=== PATIENT | male | born 1980 | race Caucasian/White ===

== ENCOUNTER 2016-03-07 05:59 | Day surgery (SDC) | payer OTHER ==
[~2016-03-07] VITALS: Ht 188 cm; Wt 91.8 kg
[2016-03-07] VITALS (10 sets, daily range): BP systolic 118–152; BP diastolic 43–93; PULSE 40–64; RESP 7–20; O2SAT 97–100
[~2016-03-07 05:59] MED LIST: OXYC-474 PO; TAMS0.4C98 PO
[2016-03-07] MEDS ORDERED: fentaNYL-PF 50 mCg/mL 2 mL Inj ONE (06:00)
[2016-03-07] MEDS ORDERED: Propofol 10,000 mCg/mL 20 mL Inj ONE (06:00)
[2016-03-07] MEDS ORDERED: Dexamethasone 4 mg/mL Inj ONE (06:00)
[2016-03-07] MEDS ORDERED: Ondansetron 2 mg/mL 2 mL Inj ONE (06:00)
[2016-03-07] MEDS ORDERED: CeFAZolin 2 Gm/50 mL D5W IV Premix IV ONE ×2 (06:00)
[2016-03-07] MEDS ORDERED: CeFAZolin 2 Gm/50 mL D5W Duplex Bag IV ONE (06:28)
[2016-03-07] MEDS: Lactated Ringer's 1,000 ML IV SCH ×2 (07:10→07:27)
[2016-03-07] MEDS ORDERED: Iopamidol-300 50 mL Inj IV ONE (07:52)
[2016-03-07] MEDS ORDERED: Lactated Ringer's 500 ML IV PRN (07:56)
[2016-03-07] MEDS ORDERED: Lactated Ringer's 1,000 ML IV SCH (07:56)
--- NOTE | 2016-03-07 07:56 | PCM.HPANE ---
Patient Data Surgeon Admitting Provider: Attending Provider:Mora Su MD Primary Care Physician:Kenneth Other Provider:Danny Bauer Anesthesia Reason for Visit Bilateral Kidney Stones Ht/WT & BMI Height (Feet): 6 Height (Inches): 2.00 Weight (Kilograms): 91.8 Body Mass Index 25.00 Allergies Coded Allergies: hydromorphone (Verified Allergy, Severe, itching, 03/07/16) Uncoded Allergies: KETORALAC (Allergy, Severe, edema, 03/07/16) Past Anesthesia History Anesthesia History: Denies:: Abnormal Airway, Anesthesia Reactions, Difficult Intubation, Fam Anesthesia Reaction Diabetes History Hx Diabetes?: No MRSA MRSA: No Medications Home Meds Incl Beta Kelton: No Discontinued Reported Medications Tamsulosin (Flomax)0.4 Mg Capsule0.8 Mg PO DAILY Ref 0 03/06/16 Oxycodone (Roxicodone)5 Mg Tablet5 Mg PO Q4H PRN For Pain Ref 0 03/06/16 History HEENT History: Denies:: Abnormal Airway Cataracts Difficult Intubation Dysphagia Glaucoma (being monitored for now) Hearing Problem Sinus Problem TMJ Cardiovascular History: Denies:: AICD Abdominal Aortic Aneurism Atrial Fibrillation Chest Pain Congestive Heart Failure Coronary Artery Disease Edema Heart Murmur Hypertension Irregular Heartbeat Pacemaker Peripheral Vascular Hx of Respiratory Problem?: No Respiratory History: Denies:: Asthma COPD Emphysema Oxygen Administration Pneumonia Tuberculosis Use of C-PAP Machine Use of Inhalers / NEBS Hx Neurologic Problems?: No Neurological History: Denies:: Alzheimer's Disease CVA Dementia Dizziness Headaches Multiple Sclerosis Parkinson's Disease Seizures TIA Hx of GI Problems?: No Gastrointestinal History: Denies:: Cirrhosis Gall Bladder Disease Gastroesphageal Reflux Gastrointestinal Bleeding Heartburn Hepatitis Hiatal Hernia Liver Disease Rectal Bleeding Hx of Problems?: Yes Genitourinary History: Positive for:: Kidney Stones (kerri stones current admission problem) Denies:: Urinary Tract Infection Other Pertinent History: past hx of 14 kidney stones, no prior surgeries Male Hx: Denies:: Prostate Problems Skin History: Denies:: History Skin Disorders? Pressure Ulcers Hx Musculoskeletal Problems?: No Musculoskeletal History: Denies:: Back Injury Fibromyalgia Musculoskeletal Trauma Myasthenia Gravis Osteoarthritis Rheumatoid Arthritis Systemic Lupus Hx of Psycho/Social Problems?: No Psycho Social History: Denies:: Anxiety Hx Depression Hx Surgeries?: Yes (vasectomy) Hx Any Other Health Problems?: Yes Other History: Denies:: Cancer Thyroid Disease History Blood Transfusions: Positive for:: Accept Blood Products? Denies:: Blood Transfusions Hx Diabetes: No Hx Alcohol Use: YesAlcoholic Drinks Per Day: one drink weeklyHx Substance Use : NoHave You Smoked inLast 12 mo: No Stop/Bang S-Snoring: Do You Snore Loudly: No T-Tired: feel tired, fatigued: No O-Obsered: Observed not breath: Yes P-Blood Pressure: treated: No B- Body Mass Index > 35 kg/m2: No A- Age over 50: No N- Neck Large Circumference: No G- Gender Male: Yes BALTA Total Score: 2 Risk Assessment Category Category 1A: Patient has history of documented sleep apnea, and HAS NOT received any narcotic, sedative or anesthesia administration during this stay. Category 1B: Patient has history of documented sleep apnea, and HAS received any narcotic , sedative or anesthesia administration during this stay Category 2: Patient has SUSPECTED Obstructive Sleep Apnea, and HAS received any narcotic , sedative or anesthesia administration during this stay. Category 3: Patient has SUSPECTED Obstructive Sleep Apnea and HAS NOT received narcotic, sedative or anesthesia administration during this stay. Category 4: Outpatient in Procedural Areas with known sleep apnea or who screen positive for High Risk via the STOP/BANG questionnaire. Exam Exam Vital Signs Vital Signs Date Time Temp Pulse Resp B/P Pulse Ox O2 Delivery O2 Flow Rate FiO2 03/07/16 07:10 36.1 64 16 127/77 100 Room Air General Appearance: Alert, Oriented X3, Cooperative, No Acute Distress HEENT/AIRWAY: MP 2, Neck Movement (FROM), Mouth Opening (3 FBMO) Lungs: Normal Air Movement Heart: Regular Rate/Rhythm Meds/Labs/Diagnostics Admission Meds Current Medications Lactated Ringer's (Lr) 1,000 ml @ 120 mls/hr Q8H20M IV Last administered on t 07:10; Start 03/07/16 at 05:00; Stop 03/07/16 at 13:19 Plan Impression Patient chart reviewed, patient interviewed and anesthestic plan with risks, benefits, and alternatives discussed, and informed consent obtained. NPO Status: 1730 ASA Physical Status: ASA2 Mod Systemic Disease Anesthetic Plan: GA Bene/Risks/Altern/Consents: Yes HP Complete Prior to Induction: Yes Viktor Lomeli MD Mar 07, 2016 07:26
[2016-03-07] MEDS ORDERED: Phenylephrine 10,000 mCg/mL Inj IVPUSH PRN (08:00)
[2016-03-07] MEDS ORDERED: MetoCLOpramide 5 mg/mL 2 mL Inj IVPUSH PRN (08:00)
[2016-03-07] MEDS ORDERED: Atropine 0.4 mg/mL Inj IVPUSH PRN (08:00)
[2016-03-07] MEDS ORDERED: Ondansetron 2 mg/mL 2 mL Inj IVPUSH PRN (08:00)
[2016-03-07] MEDS ORDERED: hydrALAZINE 20 mg/mL Inj IVPUSH PRN (08:00)
[2016-03-07] MEDS ORDERED: Labetalol 5 mg/mL 4 mL Inj IV PRN (08:00)
[2016-03-07] MEDS ORDERED: EPHEDrine Sulfate 50 mg/mL Inj IVPUSH PRN (08:00)
[2016-03-07] MEDS ORDERED: oxyCODONE-Acetamin 5-325 mg Tablet PO PRN (09:05)
[2016-03-07] MEDS: fentaNYL-PF 50 mCg/mL 2 mL Inj IVPUSH PRN ×2 (09:08→09:17)
--- NOTE | 2016-03-07 09:44 | OP ---
[address] [address] OPERATIVE REPORT PATIENT: SHIRLENE LOPEZ : 1980 MR#: [id number] ADMIT: 03/07/2016 JOB ID: [id number] DATE OF SURGERY: 03/07/2016 PREOPERATIVE DIAGNOSIS(ES): Bilateral kidney stones. POSTOPERATIVE DIAGNOSIS(ES): Bilateral kidney stones. PROCEDURE PERFORMED: 1. Cystoscopy. 2. Bilateral retrograde pyelograms. 3. Right ureteroscopy. 4. Right ureteral stent placement. 5. Left ureteroscopy and laser lithotripsy with stone basketing. 6. Left ureteral stent placement. SURGEON: Mora Su MD. CELLOPHANE TESTER: None. FINDINGS: 1. Bilateral orthotopic ureteral orifices. 2. Somewhat narrow but within normal range caliber proximal ureter just beyond the UPJ on the right. 3. Multiple left kidney stones. ANESTHESIA: General. ESTIMATED BLOOD LOSS: Less than 5 mL. DRAINS: Bilateral 6 x 28 double-J ureteral stent. SPECIMENS: Bilateral kidney stones. COMPLICATIONS: None. CONDITION: Stable. INDICATION FOR PROCEDURE: The patient is a 35-year-old gentleman with bilateral kidney stones. There are multiple stones in each kidney, the largest approximately 5 mm. 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 DESCRIPTION OF PROCEDURE: After informed consent was obtained, the patient was taken to the operating room. A time-out was performed identifying correct patient, surgical site, procedure. General anesthesia was smoothly induced. He was placed in the lithotomy position and all pressure points were identified and appropriately padded. He was given intravenous antibiotics just prior to the start of the procedure. A 22-Mauritian rigid cystoscope was applied to the patient's urethra and advanced into the bladder. The bladder was drained. Both ureteral orifices were seen in orthotopic position and were of normal size and shape. The right ureteral orifice was cannulated with a 5-Mauritian open-ended Pollack catheter. Retrograde pyelogram was performed. There were no abnormalities. Two Sensor tip wires were then advanced into the renal pelvis in succession and placed into the renal pelvis as seen under fluoroscopy. A 12/14 access sheath 28 cm long was then advanced over one of the wires into the distal to mid ureter. Flexible ureteroscopy then commenced. The mid ureter was normal. The proximal ureter was also normal. Upon advancing to the proximal ureter just distal to the UPJ there was a small narrowing there. There were no strictures. It appeared entirely normal. Despite gentle attempts to manipulate the ureteroscope beyond the ureteropelvic junction it was not possible. A Sensor tip wire was then placed through the scope and advanced into the kidney as seen under fluoroscopy. I gently advanced the ureteroscope over the wire but it was not possible to navigate further. The ureteroscope was then brought down to the level of the access sheath under direct vision. Both were brought down in tandem. The mid and distal ureter was normal. The remaining wire was then backloaded into the cystoscope and a 6 x 28 double-J ureteral stent was loaded over it and advanced to the renal pelvis as seen under fluoroscopy. The wire was then removed leaving a nice coil in the bladder seen under direct vision. The left ureteral orifice was then cannulated with a 5-Mauritian open-ended Pollack catheter. Retrograde pyelogram was performed. It appeared entirely normal. Two Sensor tip wires were then loaded in succession into the renal pelvis as seen under fluoroscopy. A 12/14 access sheath 28 cm long was loaded over one of the wires and advanced to the distal and mid ureter. Flexible ureteroscopy then commenced. Entry into the kidney with gained. Every calyx was examined. There were at least seven stones treated with a 273 micron laser FiberWire. The stones were broken up into little pieces, and the tiny stones were taken off the papilla with the laser. A Zero Tip Nitinol basket was then used to basket the stones. Even tiny fragments were removed, considering the patient's occupation. Considerable effort was made to remove every bit of basketable stones. The only debris left was sand from the laser lithotripsy. Ureteroscope was then brought down to the level of the access sheath. Both were brought down in tandem. The ureter appeared entirely normal. A 6 x 28 double-J ureteral stent was loaded over the wire and advanced to the renal pelvis and seen under fluoroscopy. The wire was then removed leaving a nice coil in the patient's bladder as seen under direct vision. The bladder was then drained. Then, 2% viscous lidocaine jelly was applied to the patient's urethra, and the patient was then reversed from general anesthesia. He was taken to the PACU in good and stable condition. NESS
--- NOTE | 2016-03-07 10:20 | PCM.ANEP1 ---
Post Anesthesia Phase 1 PACU Phase 1 Assessment Vital Signs Vital Signs Date Time Temp Pulse Resp B/P Pulse Ox O2 Delivery O2 Flow Rate FiO2 03/07/16 10:06 36.2 42 16 133/44 99 Room Air 03/07/16 09:34 36.3 40 11 149/66 99 Room Air 03/07/16 09:30 48 20 152/76 97 Room Air 03/07/16 09:15 62 20 143/83 99 Room Air 03/07/16 09:10 36.5 55 11 140/93 99 Room Air 03/07/16 09:05 52 17 137/79 99 Room Air 03/07/16 09:00 52 19 126/63 99 Room Air 03/07/16 08:55 46 16 118/54 99 Simple Mask 8 03/07/16 08:50 36.4 48 7 118/43 98 Simple Mask 8 03/07/16 07:10 36.1 64 16 127/77 100 Room Air Anesthetic Administered: GA Level of Alertness: Awake, talking LEDESMA's with Equal Strength: Yes Pain: No Nausea or Vomiting: No Oxygen Delivery: Room Air Lungs: Normal Air Movement Dermatome Level: Full Sensation Viktor Lomeli MD Mar 07, 2016 10:20
--- NOTE | 2016-03-07 15:02 | DRSVH ---
PROCEDURE: X-RAY RETROGRADE UROGRAPHY INDICATIONS: BILATERAL STENT PLACEMENT/STONE REMOVAL TECHNIQUE: 4 intra-operative images acquired by the Urology service. COMPARISON: None. FINDINGS: Intraoperative imaging during retrograde pyelography and stent placement on the left. IMPRESSION: Image documentation left retrograde pyelography and stent placement Dictated by: Sean Chery M.D. on 03/07/2016 at 15:00 Approved by: Sean Chery M.D. on 03/07/2016 at 15:00
--- NOTE | 2016-03-07 15:03 | DRSVH ---
PROCEDURE: X-RAY RETROGRADE UROGRAPHY INDICATIONS: C-ARM ASSISTED RIGHT STENT PLACEMENT TECHNIQUE: 5 intra-operative images acquired by the Urology service. COMPARISON: None. FINDINGS: Intraoperative images obtained during right retrograde pyelography and stent placement. IMPRESSION: Intraoperative documentation right ureteral stent placement Dictated by: Sean Chery M.D. on 03/07/2016 at 15:01 Approved by: Sean Chery M.D. on 03/07/2016 at 15:01
--- NOTE | 2016-03-07 16:45 | PCM.ANEP2 ---
Post Anesthesia Evaluation ASA/CMS Post Anesthesia VS in Patient's Normal Range?: Yes Resp Stable; Airway Patent?: Yes CV Function & Hydration Stable: Yes Mental Status Recovered?: Yes Pain control Satisfactory?: Yes N/V Control Satisfactory?: Yes Viktor Lomeli MD Mar 07, 2016 16:45
[2016-03-10] MEDS ORDERED: TAMS0.4C98 PO (16:02)
[2016-03-10] MEDS ORDERED: OXYC-474 PO (16:02)
[2016-03-15 09:09] LABS: Stone Color Brown (.)
== END 2016-03-07 23:59 | disposition home or self-care (01) ==
LOC: SAS 05:59
PROVIDERS: ATTEND Urology
DX: N20.0 Calculus of kidney (principal)
CPT/HCPCS: 52332; 52356; 74420; 82360; C2617; J0690; J1100; J2405; J7120; Q9967

== ENCOUNTER 2016-03-14 12:06 | Day surgery (SDC) | payer OTHER ==
[2016-03-14] VITALS (8 sets, daily range): BP systolic 130–143; BP diastolic 69–82; PULSE 44–61; RESP 14–19; O2SAT 96–99
[~2016-03-14] VITALS: Ht 188 cm; Wt 89.6 kg
[~2016-03-14 12:06] MED LIST changes: +CeFAZolin 2 Gm/50 mL D5W IV Premix IV ONE
[2016-03-14] MEDS ORDERED: Dexamethasone 4 mg/mL Inj ONE (12:07)
[2016-03-14] MEDS ORDERED: fentaNYL-PF 50 mCg/mL 2 mL Inj ONE (12:07)
[2016-03-14] MEDS ORDERED: Ondansetron 2 mg/mL 2 mL Inj ONE (12:07)
[2016-03-14] MEDS ORDERED: Propofol 10,000 mCg/mL 20 mL Inj ONE (12:07)
[2016-03-14] MEDS: Lactated Ringer's 1,000 ML IV SCH ×2 (12:28→14:12)
[2016-03-14] MEDS ORDERED: CeFAZolin 2 Gm/50 mL D5W Duplex Bag IV ONE (12:50)
--- NOTE | 2016-03-14 13:42 | PCM.HPANE ---
Patient Data Date of Service: Mar 14, 2016 Surgeon Admitting Provider: Attending Provider:Mora Su MD Primary Care Physician:Kenneth Other Provider:Danny Bauer Anesthesia Reason for Visit Right Kidney Stone Ht/WT & BMI Height (Feet): 6 Height (Inches): 2 Weight (Kilograms): 89.6 Body Mass Index 25.00 Allergies Coded Allergies: hydromorphone (Verified Allergy, Severe, facial itching, 03/14/16) ketorolac (Verified Allergy, Unknown, 03/14/16) Past Anesthesia History Anesthesia History: Denies:: Abnormal Airway, Anesthesia Reactions, Difficult Intubation, Fam Anesthesia Reaction Diabetes History Hx Diabetes?: No MRSA MRSA: No Medications Hypertension Medication: No Home Meds Incl Beta Kelton: No Reported Medications Tamsulosin (Flomax)0.4 Mg Capsule0.4 Mg PO DAILY Ref 0 03/10/16 Oxycodone (Roxicodone)5 Mg Tablet5 Mg PO Q4H PRN For Pain Ref 0 03/10/16 Discontinued Reported Medications Tamsulosin (Flomax)0.4 Mg Capsule0.8 Mg PO DAILY Ref 0 03/06/16 Oxycodone (Roxicodone)5 Mg Tablet5 Mg PO Q4H PRN For Pain Ref 0 03/06/16 History History of ENT Problems?: No HEENT History: Denies:: Abnormal Airway Cataracts Difficult Intubation Dysphagia Hearing Problem Sinus Problem TMJ Hx of Heart Problems?: No Cardiovascular History: Denies:: AICD Abdominal Aortic Aneurism Atrial Fibrillation Chest Pain Congestive Heart Failure Edema Heart Murmur Hypertension Irregular Heartbeat Pacemaker Hx of Respiratory Problem?: No Respiratory History: Denies:: Asthma COPD Emphysema Oxygen Administration Pneumonia Tuberculosis Use of C-PAP Machine Hx Neurologic Problems?: No Neurological History: Denies:: Alzheimer's Disease CVA Dementia Dizziness Headaches Multiple Sclerosis Parkinson's Disease Seizures Hx of GI Problems?: No Gastrointestinal History: Denies:: Cirrhosis Gastroesphageal Reflux Gastrointestinal Bleeding Heartburn Hepatitis Hiatal Hernia Rectal Bleeding Hx of Problems?: Yes Genitourinary History: Positive for:: Kidney Stones (right kidney stones current admission problem) Denies:: Urinary Tract Infection Other Pertinent History: multiple stone hx- had bilateral lithotripsy stents done here 03/07/16 Male Hx: Denies:: Prostate Problems Skin History: Denies:: History Skin Disorders? Pressure Ulcers Hx Musculoskeletal Problems?: No Musculoskeletal History: Denies:: Back Injury Musculoskeletal Trauma Systemic Lupus Hx of Psycho/Social Problems?: No Psycho Social History: Denies:: Anxiety Hx Depression Hx Surgeries?: Yes (vasectomy, kerri lithotripsy, stents) Hx Any Other Health Problems?: Yes Other History: Denies:: Cancer Thyroid Disease History Blood Transfusions: Denies:: Blood Transfusions Hx Diabetes: No Hx Alcohol Use: YesHx Substance Use: No Smoking Status: Never Smoker Have You Smoked inLast 12 mo: No Stop/Bang S-Snoring: Do You Snore Loudly: No T-Tired: feel tired, fatigued: No O-Obsered: Observed not breath: Yes P-Blood Pressure: treated: No B- Body Mass Index > 35 kg/m2: No A- Age over 50: No N- Neck Large Circumference: No G- Gender Male: Yes BALTA Total Score: 2 BALTA Risk Assessment: Low Risk, <3 Yes Risk Assessment Category Category 1A: Patient has history of documented sleep apnea, and HAS NOT received any narcotic, sedative or anesthesia administration during this stay. Category 1B: Patient has history of documented sleep apnea, and HAS received any narcotic , sedative or anesthesia administration during this stay Category 2: Patient has SUSPECTED Obstructive Sleep Apnea, and HAS received any narcotic , sedative or anesthesia administration during this stay. Category 3: Patient has SUSPECTED Obstructive Sleep Apnea and HAS NOT received narcotic, sedative or anesthesia administration during this stay. Category 4: Outpatient in Procedural Areas with known sleep apnea or who screen positive for High Risk via the STOP/BANG questionnaire. Exam Exam Vital Signs Vital Signs Date Time Temp Pulse Resp B/P Pulse Ox O2 Delivery O2 Flow Rate FiO2 03/14/16 12:39 36.3 50 16 133/82 99 Room Air General Appearance: Alert, Oriented X3, Cooperative, No Acute Distress HEENT/AIRWAY: MP 2 Lungs: Clear to Auscultation, Normal Air Movement Heart: Exam Unremarkable, Regular Rate/Rhythm, No Murmurs/Rubs/Gallops Meds/Labs/Diagnostics Admission Meds Current Medications Lactated Ringer's (Lr) 1,000 ml @ 120 mls/hr Q8H20M IV Last administered on t 12:28; Start 03/14/16 at 05:00; Stop 03/14/16 at 13:19; Status DC Plan Impression Patient chart reviewed, patient interviewed and anesthestic plan with risks, benefits, and alternatives discussed, and informed consent obtained. NPO Status: 0530 03/14 ASA Physical Status: ASA2 Mod Systemic Disease Anesthetic Plan: GA Bene/Risks/Altern/Consents: Yes HP Complete Prior to Induction: Yes Thiago Frankel MD Mar 14, 2016 13:42
[2016-03-14] MEDS ORDERED: Lactated Ringer's 500 ML IV PRN (14:42)
[2016-03-14] MEDS ORDERED: Lactated Ringer's 1,000 ML IV SCH (14:42)
[2016-03-14] MEDS ORDERED: Phenylephrine 10,000 mCg/mL Inj IVPUSH PRN (14:45)
[2016-03-14] MEDS ORDERED: EPHEDrine Sulfate 50 mg/mL Inj IVPUSH PRN (14:45)
[2016-03-14] MEDS ORDERED: Labetalol 5 mg/mL 4 mL Inj IV PRN (14:45)
[2016-03-14] MEDS ORDERED: hydrALAZINE 20 mg/mL Inj IVPUSH PRN (14:45)
[2016-03-14] MEDS ORDERED: Atropine 0.4 mg/mL Inj IVPUSH PRN (14:45)
[2016-03-14] MEDS ORDERED: fentaNYL-PF 50 mCg/mL 2 mL Inj IVPUSH PRN (14:45)
[2016-03-14] MEDS ORDERED: MetoCLOpramide 5 mg/mL 2 mL Inj IVPUSH PRN (14:45)
[2016-03-14] MEDS ORDERED: Ondansetron 2 mg/mL 2 mL Inj IVPUSH PRN (14:45)
--- NOTE | 2016-03-14 15:39 | PCM.ANEP1 ---
Post Anesthesia Phase 1 PACU Phase 1 Assessment Date of Service: Mar 14, 2016 Vital Signs 36.6 143/78 45 14 96% RA Anesthetic Administered: GA Level of Alertness: Sleeping, hard to arouse LEDESMA's with Equal Strength: Yes Pain: No Nausea or Vomiting: No Oxygen Delivery: Room Air Lungs: Clear to Auscultation, Normal Air Movement Thiago Frankel MD Mar 14, 2016 15:39
--- NOTE | 2016-03-14 16:00 | OP ---
[address] [address] OPERATIVE REPORT PATIENT: SHIRLENE LOPEZ : 1980 MR#: [id number] ADMIT: 03/14/2016 JOB ID: [id number] DATE OF SURGERY: 03/14/2016 PREOPERATIVE DIAGNOSIS(ES): 1. Retained left ureteral stent. 2. Right kidney stones. POSTOPERATIVE DIAGNOSIS(ES): 1. Retained left ureteral stent. 2. Right kidney stones. PROCEDURE: 1. Cystoscopy. 2. Left ureteral stent removal. 3. Right ureteral stent removal. 4. Right ureteroscopy with laser lithotripsy and stone basketing. 5. Right retrograde pyelogram. 6. Right ureteral stent placement. SURGEON: Mora Su MD. SENIOR ARCHITECT/DESIGN MANAGER: None. FINDINGS: Multiple stones in the right kidney. ANESTHESIA: General. ESTIMATED BLOOD LOSS: Less than 5 mL. DRAINS: A 6 x 28 right double-J ureteral stent. SPECIMENS: Kidney stones. COMPLICATIONS: None. CONDITION: Stable. INDICATION FOR PROCEDURE: The patient is a 35-year-old gentleman who is status post bilateral ureteroscopy a week ago. He now presents for definitive management of his right-sided kidney stones. DESCRIPTION OF PROCEDURE: After informed consent was obtained, the patient was taken to the operating room. A time-out was performed identifying correct patient, surgical site, and procedure. General anesthesia was smoothly induced. He was placed in the lithotomy position and all pressure points were identified and appropriately padded. His genitals were then prepped and draped in the usual sterile fashion. A 22-Panamanian rigid cystoscope was applied to the patient's urethra and advanced to the bladder. The bladder was drained. The left ureteral stent was seen emanating from the left ureteral orifice. Stent graspers were used to manipulate the stent out of the ureter. It was examined on the back table and ensured as removed in its entirety. The right ureteral stent was then manipulated down to the urethral meatus. A Sensor tip wire was used to load the stent, and it was navigated to the renal pelvis as seen under fluoroscopy. The stent was then backloaded off of the wire and ensured as removed in its entirety. A second Sensor tip wire was then placed into the renal pelvis as seen under fluoroscopy. A 12/14 access sheath, 28 cm long, was then placed over one of the wires and advanced to the distal ureter. Ureteroscopy then commenced. The ureter appeared normal. Upon entry into the kidney, a pyelogram was performed. Every calyx was examined. There were several stones there. A 273 micron laser FiberWire was used to break the stones into small pieces. A Zero Tip Nitinol basket was used to basket all of the stones. 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 Every calyx was examined multiple times to ensure that no stone debris was left within the kidney. The ureteroscope was then brought down to the level the access sheath and both were brought down in tandem. The remaining Sensor tip wire was then backloaded into the cystoscope and a 6 x 28 double-J ureteral stent was loaded over it and advanced into the renal pelvis as seen under fluoroscopy. The wire was then removed leaving a nice coil in the patient's bladder, seen under direct vision. The bladder was then drained. General anesthesia was reversed. He was then taken to the PACU in good and stable condition. NESS
[2016-03-14] MEDS: oxyCODONE-Acetamin 5-325 mg Tablet PO PRN ×2 (16:24→16:56)
--- NOTE | 2016-03-14 16:30 | DRSVH ---
PROCEDURE: X-RAY RETROGRADE UROGRAPHY INDICATIONS: CYSTO TECHNIQUE: 2 spot fluoroscopic intra-operative images acquired by the Urology service. COMPARISON: [facility], CR, XR SURG FLOURO EA 30 MIN, 03/14/2016, 14:10. [facility], CR, XR RETROGRADE UROGRAPHY, 03/07/2016, 7:42. FINDINGS: 2 spot fluoroscopic images demonstrating proximal portion of a ureteral stent Dictated by: Hakeem Ronquillo M.D. on 03/14/2016 at 16:28 Approved by: Hakeem Ronquillo M.D. on 03/14/2016 at 16:28
--- NOTE | 2016-03-14 16:36 | PCM.ANEP2 ---
Post Anesthesia Evaluation ASA/CMS Post Anesthesia Date of Service: Mar 14, 2016 VS in Patient's Normal Range?: Yes Resp Stable; Airway Patent?: Yes CV Function & Hydration Stable: Yes Mental Status Recovered?: Yes Pain control Satisfactory?: Yes N/V Control Satisfactory?: Yes Thiago Frankel MD Mar 14, 2016 16:36
[2016-03-21 13:09] LABS: Stone Color Brown (.)
== END 2016-03-14 23:59 | disposition home or self-care (01) ==
LOC: SAS 12:06
PROVIDERS: ATTEND Urology
DX: N20.0 Calculus of kidney (principal); Z79.899 Other long term (current) drug therapy